=== PATIENT | female | born 1990 | race American Indian/Alaskan Native ===

== ENCOUNTER 2017-09-02 07:38 | Emergency (ER) | payer BC, OTHER ==
[2013-04-07 12:13] VITALS: BMI 30.9
[2017-09-02] MEDS ORDERED: Lactated Ringer's 1,000 ML IV SCH (08:30)
[2017-09-02 09:08] LABS: BASO % 0.3 % (0.0-2.0); EOS % 0.1 % (0.0-4.0); LYMPH # 0.7 K/uL (1.0-4.3); LYMPH % 7.8 % (20.0-40.0); MEAN CELL VOLUME 85.4 fL (81.0-99.0); MEAN CORPUSCULAR HEMOGLOBIN 27.8 pg (27.0-31.0); MEAN CORPUSCULAR HGB CONC 32.5 g/dL (33.0-37.0); MEAN PLATELET VOLUME 8.8 fL (7.2-11.7); MONO # 0.8 K/uL (0.0-0.8); MONO % 9.1 % (0.0-10.0); NEUT # 7.4 K/uL (1.8-7.0); NEUT % 82.7 % (50.0-75.0); NRBC % 0.1 % (0.0-2.0); PLATELET COUNT 236 K/uL (130-400); RBC 3.59 Mil/uL (3.80-5.20); RED CELL DISTRIBUTION WIDTH 14.1 % (11.5-14.5); WHITE BLOOD COUNT 8.9 K/uL (4.8-10.8)
[2017-09-02 09:13] LABS: INR 1.1; PROTHROMBIN TIME 11.7 SECONDS (9.7-12.2); SQUAMOUS EPITHIAL 20 /hpf (0-5); URINE BILIRUBIN NEGATIVE (NEGATIVE); URINE BLOOD NEGATIVE (NEGATIVE); URINE CALCIUM OXALATE CRYSTALS MANY /hpf (<OCC); URINE CLARITY Hazy (Clear); URINE COLOR Amber (YELLOW); URINE GLUCOSE (UA) NORMAL (Normal); URINE LEUKOCYTE ESTERASE 3+ Leu/uL (Negative); URINE PROTEIN 1+ mg/dL (NEGATIVE)
[2017-09-02 09:21] LABS: ALB/GLOB RATIO 1.1 (1.0-2.1); ALBUMIN 3.2 g/dL (3.5-5.0); ALT/SGPT 43 U/L (9-52); AST/SGOT 49 U/L (14-36); BLOOD UREA NITROGEN 8 mg/dL (7-17); CALCIUM 8.6 mg/dl (8.6-10.4); GFR AFRICAN-AMERICAN > 60; GFR NON-AFRICAN AMERICAN > 60; URIC ACID 4.8 mg/dL (2.2-7.5)
--- NOTE | 2017-09-02 09:27 | OBHP ---
Datetime: 09/02/2017 09:23 IP Adm Impression: , intrauterine IP Chief Complaint Other: hedache//tire/nausea Admit Comment, IP Provider: at 38.6weeks desire came with c/o occ ctxs, nausea and hedach e no blurry vision, no ctxs, vb,lof+fm. obhx 1 x c/s pmh de med pnv all nkda psh c/s soch de ve ft/50/-3 a/p at labor/hedache blood work cont caroline ad efm ivf cont close obseervation Pelvic Type - PN: Adequate Extremities - PN: Normal Abdomen - PN: Normal Back - PN: Normal Breast - PN: Normal Lungs - PN: Normal Heart - PN: Normal Thyroid - PN: Normal Neurologic - PN: Normal HEENT - PN: Normal General - PN: Normal FHR - Baseline A Provider: 150 Contraction Comments Provider: irrg EGA AdmitDate IP: 38.6 Vital Signs Provider: Reviewed IP Chief Complaint: Maternal discomfort NICHD Variability Prov Fetus A: Moderate 6-25bpm NICHD Accel Fetus A IP Provider: [id number] FHR Category Provider Fetus A: Category I Dilatation, Provider: ft Effacement, Provider: 50 Station, Provider: -3 Genitourinary Exam: Normal DTRs - PN: Normal
--- NOTE | 2017-09-02 09:32 | OBHP ---
Datetime: 09/02/2017 09:23 Admit Comment, IP Provider: at 38.6weeks desire came with c/o occ ctxs, nausea and hedach e no blurry vision, no ctxs, vb,lof+fm. obhx 1 x c/s pmh de med pnv all nkda psh c/s soch de ve ft/50/-3 a/p at labor/hedache blood work cont caroline ad efm ivf cont close obseervation 10.amm pt feel better. blood work n ua 3 =le plan dc home macrobid labor po f/u in clinic on
[2017-09-02 09:33] LABS: ANISOCYTOSIS SLIGHT; BANDS 3 % (0-2); HYPOCHROMIC SLIGHT; LYMPHOCYTE 6 % (20-40); MONOCYTE 11 % (0-10); NEUTROPHIL 80 % (50-75); PLATELET ESTIMATE NORMAL (NORMAL); POIKILOCYTOSIS SLIGHT; TARGET CELLS SLIGHT; TOTAL CELLS COUNTED 100
--- NOTE | 2017-09-02 09:35 | OBDCSUM ---
Datetime: 09/02/2017 09:32 Discharged to, Provider: Home Follow up at, Provider: Follow up in weeks, Provider: clinic Discharge Comment, Provider: dc home macrobid labor po f/u in clinic on frid Discharge Diagnosis Prov Other: 38week uti
--- NOTE | 2017-09-02 15:06 | OBHP ---
Datetime: 09/02/2017 15:02 Admit Comment, IP Provider: pt was seen. feels ok. request . pain toleratble, no vb, lof+fm ve ft/50/-3 unchanged plan dc home macrpbid po hy f/u in clinic in 1-2 days Datetime: 09/02/2017 09:23 EGA AdmitDate IP: 38.6
[2017-09-02 21:33] VITALS: BP 117/67; PULSE 97; RESP 18; TEMP 99.9; O2SAT 100
== END 2017-09-02 15:30 | disposition home or self-care (01) ==
LOC: C.EROB 07:38
DX: O26.93 Pregnancy related conditions, unspecified, third trimester (principal); R11.0 Nausea; R51 Headache; Z3A.38 38 weeks gestation of pregnancy
CPT/HCPCS: 80053; 81001; 83615; 84550; 85025; 85384; 85610; 85730; 99283; J7120